=== PATIENT | male | born 1990 | race Caucasian/White ===

== ENCOUNTER 2018-04-24 12:16 | Day surgery (SDC) | payer OTHER ==
[~2018-04-24 12:16] MED LIST: DEXAMETHASONE SOD PHOSPHATE 10 MG/ML 1 ML VIAL IV ONE; HYDROmorphone 0.5 MG/0.5 ML SYRINGE IVP PRN; LACTATED RINGERS 1,000 ML IV SCH; MIDAZOLAM (PF) 2 MG/2 ML VIAL IV PRN; ONDANSETRON 4 MG/2 ML VIAL IVP ONE; SCOPOLAMINE 1.5MG/72HR PATCH TRANSDERM ONE; ceFAZolin IN SWFI 2 GM/20 ML SYRINGE IVP ONE
[2018-04-24] MEDS ORDERED: LIDOCAINE 1% 20 ML VIAL (10MG/ML) FOR IV START INTRADERMA ONE (13:38)
[2018-04-24] MEDS ORDERED: PROPOFOL 10 MG/ML 20 ML VIAL IV ONE (15:21)
[2018-04-24] MEDS ORDERED: NEOSTIGMINE 1 MG/ML 10 ML VIAL ONE (15:21)
[2018-04-24] MEDS ORDERED: fentaNYL (PF) 50 MCG/ML 2 ML AMP ONE (15:21)
[2018-04-24] MEDS ORDERED: ROCURONIUM BROMIDE 10 MG/ML 10 ML VIAL IV ONE (15:21)
[2018-04-24] MEDS ORDERED: ROPIVACAINE 5 MG/ML 30 ML VIAL ONE (15:21)
[2018-04-24] MEDS ORDERED: LABETALOL 5 MG/ML VIAL MDV ONE (15:21)
[2018-04-24] MEDS ORDERED: GLYCOPYRROLATE 0.2 MG/ML 2 ML VIAL ONE (15:21)
[2018-04-24] MEDS ORDERED: HYDROmorphone (PF) 1 MG/ML ONE (15:21)
[2018-04-24] MEDS ORDERED: MIDAZOLAM 2 MG/2 ML VIAL ONE (15:21)
[2018-04-24] MEDS ORDERED: LIDOCAINE 2% (PF) 20 MG/ML 5 ML VIAL SQ ONE (15:55)
[2018-04-24] MEDS ORDERED: ceFAZolin 1,000 MG in SODIUM CHLORIDE 0.9% 1,000 ML IRRIGATION ONE (16:10)
[2018-04-24] MEDS ORDERED: LACTATED RINGERS 1,000 ML IV ONE (16:15)
[2018-04-24] MEDS ORDERED: LIDOCAINE 1%-EPI 1:100,000 20 ML VIAL SQ ONE (17:46)
[2018-04-24] MEDS ORDERED: ONDANSETRON 4 MG/2 ML VIAL IVP ONE (18:15)
[2018-04-24] MEDS ORDERED: PROMETHAZINE INJ 25 MG/ML 1 ML VIAL IVPB ONE (18:35)
--- NOTE | 2018-04-24 18:38 | P.ONQ ---
Anesthesiology Proc Note - PNB - Peripheral Nerve Block Performed Right Axillary Single Time Out Performed: Yes Procedure Start Time: 18:10 Procedure Stop Time: 18:15 Indication: Acute Post-Operative Pain, Analgesia, Requested by physician Sedation Type: Awake Preparation: Sterile Prep Position: Supine Catheter: None Needle Types: On-Q Needle Size: 50mm (2") Needle Gauge: 21 Technique: Ultrasound Injectate: 0.5% Ropivacaine (see comment for volume) (20) Blood Aspirated: No Pain Paresthesia on Injection Noted: No Resistance on Injection: Normal Events: Uneventful and Well Tolerated
[2018-04-24 18:49] VITALS: RESP 18
[2018-04-24 19:27] VITALS: BP 150/81; PULSE 65; TEMP 98.4; BMI 30.2
--- NOTE | 2018-04-24 21:04 | P.OP ---
Date of Procedure: 04/24/18 Preoperative Diagnosis: Displaced right fifth metacarpal neck fracture Postoperative Diagnosis: Displaced right fifth metacarpal neck fracture Procedure(s) Performed: Open reduction and internal fixation of right fifth metacarpal neck fracture Implants: Biomet 2.5 mm Y-plate with locking and cortical screws Anesthesia: NAI, local Surgeon: Roberto Mckinney Supervisor [employer]: Adore Dougherty Estimated Blood Loss (ml): 5 Pathology: none sent Condition: stable Disposition: PACU Indications for Procedure: The patient is a 27-year-old male who sustained an injury to his right hand resulting in a displaced fifth metacarpal neck fracture. Treatment options were reviewed in the office and surgical stabilization was recommended. Risks and benefits were discussed. Questions were invited and answered. The patient expressed understanding and wished to proceed with surgery. Surgical site was confirmed and marked. Consent forms were signed. Description of Procedure: After informed consent was obtained, the patient was brought to the operative suite by the anesthesia team. A tourniquet was placed on the right arm. A time- out was performed which confirmed the patient, the operative side, site and the procedure to be performed. All team members expressed agreement. The right upper extremity was then prepped and draped in standard, sterile fashion. An ulnar wrist block was performed using 10 mL of lidocaine without epinephrine. The limb was exsanguinated with an Esmarch and the tourniquet was inflated. Longitudinal incision was marked on the ulnar border of the fifth metacarpal, curving gently around the metacarpal head. Skin was sharply incised and full- thickness skin flaps were elevated. Subcutaneous veins were coagulated as needed. Superficial skin nerves were mobilized and protected. The extensor tendons were gently elevated and mobilized. The periosteum over the fracture site was incised and sharply elevated. The fracture was quite scarred down. Sharp dissection was used to release adhesions and scar tissue. A curette and rongeur were used to remove hematoma and fibrous tissue from the fracture site. The fracture was then manually reduced. Good alignment was confirmed with imaging. Based on the fracture pattern and the patient's anatomy, a 2.5 mm Y plate was selected and cut to fit. This was positioned dorsally on the metacarpal the ulnar aspect of the extensor sanchez was partially released to facilitate plate position and later repaired with 3-0 Vicryl sutures. The plate was provisionally secured to the bone with K wires. Two cortical screws were drilled, measured and inserted to secure the plate to the shaft proximally. Two variable angle locking screws were drilled and inserted to secure the plate to the metacarpal head. All K wires were removed. Final x- rays were obtained which confirmed good alignment and implant position. The fixation construct was then stressed under live fluoroscopy - no motion was seen at the fracture site. The wound was thoroughly irrigated with normal saline. The periosteum was repaired over the plate with 3-0 Vicryl sutures. The tourniquet was released and good hemostasis was obtained with electrocautery. The incision was closed with interrupted 4-0 nylon sutures. Additional lidocaine with epinephrine was injected into the perioperative subcutaneous tissues for adjunctive postoperative pain control and hemostasis. A sterile dressing was applied followed by a hand-based resting plaster splint. All sponge and needle counts were correct at the end of the case. The patient tolerated the procedure well. He was taken to recovery in stable condition.
--- NOTE | 2018-04-25 07:17 | FL ---
EXAMINATION TYPE: FL guidance operating room, XR hand complete RT DATE OF EXAM: 04/24/2018 CLINICAL HISTORY: Right fifth finger fracture. TECHNIQUE: Fluoroscopy. Intraoperative complete 3 views right hand. COMPARISON: None. FINDINGS: Fluoroscopic guidance was provided during open reduction internal fixation procedure perfo rmed by Dr. Mckinney. A total of 17 seconds of fluoroscopic time was utilized during the procedure and 5 spot intraoperative images are acquired. Images acquired show placement of fixating plate sprue oblique fracture mid to distal diaphysis fifth metacarpal. Satisfactory alignment is seen after reduction and fixation. IMPRESSION: As Above.
== END 2018-04-24 20:00 | disposition home or self-care (01) ==
LOC: OR 12:16 → 4SSUR 18:44 → OR 20:00
PROVIDERS: ATTEND Orthopaedic Surgery
DX: S62.336A Displaced fracture of neck of fifth metacarpal bone, right hand, initial encounter for closed fracture (principal); W22.8XXA Striking against or struck by other objects, initial encounter
CPT/HCPCS: 26615; 64417; 73130; C1713; J2250; J1100; J2550; J2710; J2405; J0690 ×2; J3010; J1170; J2795; J2704; J2001